=== PATIENT | female | born 1995 | race Hispanic/Latino ===

== ENCOUNTER 2018-04-23 23:20 | Emergency (ER) | payer OTHER ==
[~2018-04-23] VITALS: Ht 157.5 cm; Wt 79.4 kg
[2018-04-24] MEDS ORDERED: FLUCONAZOLE100 MG PO (00:26)
[2018-04-24] MEDS ORDERED: CLOTRIMAZOLE15 GM TOP (00:26)
== END 2018-04-24 00:40 | disposition home or self-care (01) ==
LOC: FSED 23:20
DX: B37.2 Candidiasis of skin and nail (principal)

== ENCOUNTER 2021-03-26 00:48 | Emergency (ER) | payer BC ==
[~2021-03-26] VITALS: Ht 157.5 cm; Wt 90.7 kg
[~2021-03-26 00:48] MED LIST: CLOTRIMAZOLE15 GM TOP; FLUCONAZOLE100 MG PO
[2021-03-26] MEDS ORDERED: HYDROCODONE/APAP 5MG-325MG TAB PO ONE (01:45)
[2021-03-26] MEDS ORDERED: KETOROLAC TROMETHAMINE 30 MG/ML VIAL IV ONE (01:45)
[2021-03-26] MEDS ORDERED: METHYLPREDNISOLONE SOD SUCC 40 MG/ML VIAL 1ML IV ONE (01:45)
[2021-03-26] MEDS ORDERED: ONDANSETRON HCL INJ 2MG/ML 2ML 2 MG/ML VIAL IV ONE (01:45)
[2021-03-26] MEDS ORDERED: KETOROLAC TROMETHAMINE 30 MG/ML VIAL ONE (01:52)
[2021-03-26] MEDS ORDERED: METHYLPREDNISOLONE SOD SUCC 125 MG/2ML VIAL ONE (01:52)
[2021-03-26] MEDS ORDERED: ONDANSETRON HCL INJ 2MG/ML 2ML 2 MG/ML VIAL ONE (01:53)
[2021-03-26] MEDS ORDERED: ACETAMINOPHEN500 MG PO (02:01)
[2021-03-26] MEDS ORDERED: IBUPROFEN IB200 MG PO (02:01)
== END 2021-03-26 02:30 | disposition home or self-care (01) ==
LOC: FSED 00:55
DX: M54.6 Pain in thoracic spine (principal); R73.9 Hyperglycemia, unspecified
CPT/HCPCS: 71046; 80053; 81003; 85025; 99284; J1885; J2405; J2930; J2920

== ENCOUNTER 2021-05-16 20:46 | Emergency (ER) | payer BC ==
[~2021-05-16] VITALS: Ht 157.5 cm; Wt 93.0 kg
[~2021-05-16 20:46] MED LIST changes: +ACETAMINOPHEN500 MG PO; +IBUPROFEN IB200 MG PO
[2021-05-16] MEDS ORDERED: IBUPROFEN 200 MG TAB PO ONE (21:15)
[2021-05-16] MEDS ORDERED: CEFTRIAXONE 1 GM VIAL IM ONE (21:15)
[2021-05-16] MEDS ORDERED: ACETAMINOPHEN 325 MG TAB PO ONE (21:15)
[2021-05-16] MEDS ORDERED: CEFDINIR300 MG PO (21:19)
[2021-05-16] MEDS ORDERED: IBUPROFEN IB200 MG PO (21:19)
[2021-05-16] MEDS ORDERED: THERAFLU FLU &1 EAC1 PO (21:19)
[2021-05-16] MEDS ORDERED: FLUCONAZOLE100 MG PO (21:19)
[2021-05-16] MEDS ORDERED: IBUPROFEN 600 MG TAB ONE (21:23)
[2021-05-16] MEDS ORDERED: ACETAMINOPHEN 325 MG TAB ONE (21:24)
[2021-05-16] MEDS ORDERED: CEFTRIAXONE 1 GM VIAL ONE (21:24)
[2021-05-16] MEDS ORDERED: LIDOCAINE HCL 1% LOCAL INJ 20 ML VIAL ONE (21:24)
[2021-05-16 21:37] VITALS: BP 145/87
== END 2021-05-16 21:37 | disposition home or self-care (01) ==
LOC: FSED 21:03
DX: H66.91 Otitis media, unspecified, right ear (principal); J02.9 Acute pharyngitis, unspecified; N39.0 Urinary tract infection, site not specified; K02.9 Dental caries, unspecified
CPT/HCPCS: 81003; 81025; 96372; 99283; J0696; J2001

== ENCOUNTER 2021-12-09 07:59 | Emergency (ER) | payer BC, MEDICARE ==
[~2021-12-09] VITALS: Ht 157.5 cm; Wt 93.0 kg
[~2021-12-09 07:59] MED LIST changes: +CEFDINIR300 MG PO; +THERAFLU FLU &1 EAC1 PO
[2021-12-09] MEDS ORDERED: AMOX TR-K CLV1 EAC2 PO (08:44)
== END 2021-12-09 08:55 | disposition home or self-care (01) ==
LOC: FSED 08:07
DX: O99.512 Diseases of the respiratory system complicating pregnancy, second trimester (principal); H66.92 Otitis media, unspecified, left ear; H61.22 Impacted cerumen, left ear
CPT/HCPCS: 99282

== ENCOUNTER 2024-05-21 09:31 | Emergency (ER) | payer BC ==
[~2024-05-21] VITALS: Ht 157.5 cm; Wt 96.3 kg
[~2024-05-21 09:31] MED LIST changes: +AMOX TR-K CLV1 EAC2 PO; +FLONASE ALLERG9.9 ML INH; +NAPROSYN500 MG PO; +OFLOXACIN5 ML OT; +ZYRTEC-D TABLE1 EACH PO
[2024-05-21] MEDS ORDERED: AMOXICILLIN500 MG PO (10:26)
[2024-05-21 11:05] VITALS: PULSE 100; RESP 16; TEMP 99; O2SAT 100
== END 2024-05-21 11:05 | disposition home or self-care (01) ==
LOC: FSED 09:40
DX: H92.01 Otalgia, right ear (principal); J02.9 Acute pharyngitis, unspecified; Z33.1 Pregnant state, incidental
CPT/HCPCS: 83518; 99283